=== PATIENT | female | born 1975 | race Caucasian/White ===

== ENCOUNTER → 2017-07-03 | Outpatient (CLI) | payer BC ==
[~2017-07-03] MED LIST: BISOPROLOL 5MG T5 MG PO; NOMEDS *; OMEPRAZOLE40 MG PO; PROTONIX40 MG/PACK PO
--- NOTE | 2017-07-03 12:35 | RADIOLOGY REPORT PS360 ---
UGI SERIES W/ AIR HISTORY: EPIGASTRIC PAIN ORDERING PHYSICIAN: Raymond Lao MD PATIENT AGE: 41 years COMPARISON: None FINDINGS: The esophagus, stomach, and duodenum have an unremarkable appearance. There is no evidence of hiatal hernia. No ulcer or mass evident. No mucosal abnormalities apparent. There is normal peristalsis. The duodenal C-loop is nondisplaced. There was a moderate amount of GE reflux noted FLUOROSCOPY TIME : 1 minute and 56 seconds. IMPRESSION: Mild GE reflux otherwise negative upper GI
== END ==
LOC: RAD 06-28 09:00
DX: R10.13 Epigastric pain (principal)